=== PATIENT | male | born 1965 | race Caucasian/White ===

== ENCOUNTER → 2025-07-20 08:49 | Outpatient (REF) | payer OTHER, SELFPAY | LOC: RAD 08:49 | PROVIDERS: ATTENDING PHYSICIAN Student in an Organized Health Care Education/Training Program; FAMILY PHYSICIAN Family Medicine | DX: R13.19 Other dysphagia (principal); K21.9 Gastro-esophageal reflux disease without esophagitis | CPT/HCPCS: 74246 ==

== ENCOUNTER 2025-07-23 06:23 | Day surgery (SDC) | payer OTHER, SELFPAY | END 2025-07-23 14:54 | disposition home or self-care (01) | LOC: GI 06:23 | PROVIDERS: ATTENDING PHYSICIAN Student in an Organized Health Care Education/Training Program | DX: R13.10 Dysphagia, unspecified (principal); R12 Heartburn; K22.2 Esophageal obstruction; K20.90 Esophagitis, unspecified without bleeding; K22.89 Other specified disease of esophagus | CPT/HCPCS: 43249; 43239; 88305 ==